=== PATIENT | female | born 1950 | race Caucasian/White ===

== ENCOUNTER 2018-05-15 18:18 | Inpatient (IN) | payer OTHER, MEDICAID ==
[2018-05-15 20:21] LABS: ADD MAN DIFF? NO
[2018-05-15 20:25] LABS: BASOPHIL # 0.1 10^3/ul (0.0-0.1); BASOPHILS % 0.5 % (0.0-2.0); EOSINOPHILS # 0.2 10^3/ul (0.0-0.5); EOSINOPHILS % 1.9 % (0.0-7.0); HEMOGLOBIN 10.8 g/dl (12.0-16.0); LYMPHOCYTES # 2.6 10^3/ul (0.8-2.9); LYMPHOCYTES % 27.8 % (15.0-51.0); MEAN CORPUSCULAR HGB CONC 31.8 g/dl (32.0-37.0); MEAN CORPUSCULAR VOLUME 91.2 fl (82.0-101.0); MEAN PLATELET VOLUME 11.5 fl (7.4-10.4); MONOCYTE # 0.5 10^3/ul (0.3-0.9); MONOCYTES % 4.9 % (0.0-11.0); NEUTROPHIL # 6.1 10^3/ul (1.6-7.5); NEUTROPHILS % 64.5 % (39.0-77.0); PLATELET COUNT 199 10^3/UL (140-415); RED BLOOD COUNT 3.73 10^6/ul (4.20-5.40); RED CELL DISTRIBUTION WIDTH 13.5 % (11.5-14.5)
[2018-05-15 20:25] LABS: WHITE BLOOD COUNT 9.4 10^3/ul (4.8-10.8)
[2018-05-15] MEDS: ENALAPRILAT 1.25 MG INJ IV (20:30)
[2018-05-15 20:43] LABS: ALANINE AMINOTRANSFERASE 17 IU/L (13-69); ALBUMIN 3.9 g/dl (3.3-4.9); ALBUMIN/GLOBULIN RATIO 1.08; ALKALINE PHOSPHATASE 83 IU/L (42-121); ANION GAP 9 (5-13); ASPARTATE AMINO TRANSFERASE 19 IU/L (15-46); BILIRUBIN,INDIRECT 0.3 mg/dl (0-1.1); BILIRUBIN,TOTAL 0.3 mg/dl (0.2-1.3); BLOOD UREA NITROGEN 16 mg/dl (7-20); CALCIUM 8.7 mg/dl (8.4-10.2); CARBON DIOXIDE 29 mmol/L (21-31); CHLORIDE 102 mmol/L (97-110); CREATININE 0.83 mg/dl (0.44-1.00); Estimated GFR > 60 mL/min (>60); GLUCOSE 193 mg/dl (70-220); LIPASE 55 U/L (23-300); POTASSIUM 4.7 mmol/L (3.5-5.1); SODIUM 140 mmol/L (135-144); TOTAL PROTEIN 7.5 g/dl (6.1-8.1)
[2018-05-15 20:44] LABS: PROTIME 12.2 Sec (11.9-14.9)
[2018-05-15] MEDS: niCARdipine-NS 0.1MG/ML DRIP 200 ML IV (20:44)
[2018-05-15 20:45] LABS: PARTIAL THROMBOPLASTIN TIME 29.5 Sec (23.0-35.0)
[2018-05-15 20:55] LABS: TROPONIN-I < 0.012 ng/ml (0.000-0.120)
[2018-05-15] MEDS: LORAZEPAM 2 MG INJ IV (21:03)
[2018-05-15] MEDS: SOD CHLORIDE 0.9% 1,000 ML IV (21:04)
[2018-05-15 21:57] LABS: AADO2 Arterial 111.8 mmHg (7.0-24.0); Arterial Base Excess 2.9 mmol/L (-3.0-3); Arterial Blood Gas Oxygen Sat 98.7 mmHG (95.0-98.0); Arterial COHb 0.2 % (0.0-3.0); Arterial Fraction of Oxyhgb 98.2 % (93.0-99.0); Arterial HCO3 28.8 mmol/L (22.0-26.0); Arterial MetHb 0.3 % (0.0-1.5); Arterial pCO2 49.4 mmhg (35-45); MODE MASK - SIMPLE; Site Right Brachial
[2018-05-15] MEDS: IOHEXOL 100 ML (22:19)
[2018-05-15] MEDS: SOD CHLORIDE 0.9% 100 ML (22:19)
[2018-05-15] MEDS: ASPIRIN 300 MG SUPP PR (23:26)
[2018-05-15] MEDS: LEVETIRACETAM 1000 MG (PMX) 100 ML IVPB (23:26)
[2018-05-16 07:50] LABS: ADD UMIC YES; UR ASCORBIC ACID NEGATIVE (NEGATIVE); UR BILIRUBIN (Dip) NEGATIVE (NEGATIVE); UR BLOOD (Dip) 1+ mg/dL (NEGATIVE); UR CLARITY CLEAR (CLEAR); UR COLOR YELLOW (YELLOW); UR GLUCOSE (Dip) 3+ mg/dL (NEGATIVE); UR KETONES (Dip) 1+ mg/dL (NEGATIVE); UR LEUKOCYTE ESTERASE (Dip) NEGATIVE Leu/ul (NEGATIVE); UR NITRITE (Dip) NEGATIVE (NEGATIVE); UR RBC 32 /HPF (0-5); UR TOTAL PROTEIN (Dip) 3+ mg/dl (NEGATIVE); UR UROBILINOGEN (Dip) NEGATIVE (NEGATIVE); UR WBC 9 /HPF (0-5)
[2018-05-16 08:03] LABS: AMPHETAMINE/METHAMPHETAMINE Negative (NEGATIVE); BARBITURATES Negative (NEGATIVE); BENZODIAZEPINES Negative (NEGATIVE); CANNABINOIDS Negative (NEGATIVE); COCAINE Negative (NEGATIVE); OPIATES Negative (NEGATIVE)
[2018-05-16] MEDS: DEXTROSE 5%-0.45% NACL 1,000 ML IV ×2 (08:39→23:30)
[2018-05-16] MEDS: PHENYTOIN 1,000 MG in SOD CHLORIDE 0.9% 100 ML IV (08:43)
[2018-05-16] MEDS: ACETAMINOPHEN 650 MG SUPP PR (08:46)
[2018-05-16] MEDS: CEFTRIAXONE 1 GM/50 ML (PMX) 50 ML IVPB (08:50)
[2018-05-16] MEDS ORDERED: ALBUTEROL 0.083% (NEB) 2.5 MG/3 ML AMP NEB (09:00)
[2018-05-16] MEDS ORDERED: LORAZEPAM 4 MG/ML VIAL IV (09:00)
[2018-05-16] MEDS ORDERED: ACETAMINOPHEN 650 MG SUPP PR (09:00)
[2018-05-16] MEDS ORDERED: ONDANSETRON 4 MG INJ IV (09:00)
[2018-05-16 09:09] LABS: HEMOGLOBIN A1C 7.2 % (0-5.9)
[2018-05-16] MEDS ORDERED: GLUCOSE GEL 15 GRAM TUBE PO ×2 (09:30)
[2018-05-16] MEDS ORDERED: DEXTROSE 50% 50 ML SYRINGE IV ×2 (09:30)
[2018-05-16] MEDS ORDERED: GLUCOSE GEL 15 GRAM TUBE BUCCAL (09:30)
[2018-05-16] MEDS ORDERED: GLUCAGON 1 MG INJ IM (09:30)
[2018-05-16 10:23] LABS: AMPHETAMINE/METHAMPHETAMINE Negative (NEGATIVE); BARBITURATES Negative (NEGATIVE); BENZODIAZEPINES Negative (NEGATIVE); CANNABINOIDS Negative (NEGATIVE); COCAINE Negative (NEGATIVE); OPIATES Negative (NEGATIVE)
[2018-05-16] MEDS ORDERED: LORAZEPAM 2 MG INJ IV (10:35)
[2018-05-16] MEDS: ASPIRIN (EC) 81 MG TAB PO (10:35)
[2018-05-16] MEDS: ACETAMINOPHEN 1000MG/100ML IV 100 ML IVPB (10:59)
[2018-05-16] MEDS: INSULIN ASPART [NOVOLOG] 3 ML PEN SC ×4 (11:03→21:36)
[2018-05-16] MEDS: PHENYTOIN 100 MG INJ IV (14:48)
[2018-05-16] MEDS: ATORVASTATIN 80 MG TAB PO (21:00)
[2018-05-16] MEDS: CEFEPIME 1GM/50 ML (PMX) 50 ML IVPB (21:32)
[2018-05-16] MEDS: ACYCLOVIR 500 MG in SOD CHLORIDE 0.9% 100 ML IVPB (22:55)
[2018-05-16] MEDS: VANCOMYCIN 750 MG (PMX) 250 ML IVPB (23:38)
[2018-05-17] MEDS: INSULIN ASPART [NOVOLOG] 3 ML PEN SC ×6 (01:40→21:43)
[2018-05-17 05:10] LABS: ADD MAN DIFF? NO
[2018-05-17 05:18] LABS: WHITE BLOOD COUNT 13.7 10^3/ul (4.8-10.8)
[2018-05-17 05:18] LABS: BASOPHILS % 0.3 % (0.0-2.0); EOSINOPHILS % 0.1 % (0.0-7.0); HEMATOCRIT 31.2 % (37.0-47.0); HEMOGLOBIN 10.1 g/dl (12.0-16.0); LYMPHOCYTES # 2.5 10^3/ul (0.8-2.9); MEAN CORPUSCULAR HEMOGLOBIN 28.8 pg (29.0-33.0); MEAN CORPUSCULAR HGB CONC 32.4 g/dl (32.0-37.0); MEAN CORPUSCULAR VOLUME 88.9 fl (82.0-101.0); MEAN PLATELET VOLUME 11.3 fl (7.4-10.4); MONOCYTE # 1.1 10^3/ul (0.3-0.9); MONOCYTES % 8.2 % (0.0-11.0); PLATELET COUNT 149 10^3/UL (140-415); RED BLOOD COUNT 3.51 10^6/ul (4.20-5.40)
[2018-05-17 05:47] LABS: ANION GAP 11 (5-13); BLOOD UREA NITROGEN 19 mg/dl (7-20); CALCIUM 7.8 mg/dl (8.4-10.2); CARBON DIOXIDE 27 mmol/L (21-31); CHLORIDE 103 mmol/L (97-110); CREATININE 0.85 mg/dl (0.44-1.00); GLUCOSE 205 mg/dl (70-220); MAGNESIUM 1.3 mg/dl (1.7-2.5); PHOSPHORUS 3.6 mg/dl (2.5-4.9); POTASSIUM 3.4 mmol/L (3.5-5.1); SODIUM 141 mmol/L (135-144)
[2018-05-17] MEDS: PANTOPRAZOLE 40 MG INJ IV (05:58)
[2018-05-17] MEDS: ACYCLOVIR 500 MG in SOD CHLORIDE 0.9% 100 ML IVPB ×3 (05:59→21:48)
[2018-05-17] MEDS: MAGNESIUM SULFATE 4 GM/100 ML 100 ML IVPB (08:30)
[2018-05-17] MEDS: CEFEPIME 1GM/50 ML (PMX) 50 ML IVPB ×2 (08:55→20:27)
[2018-05-17] MEDS ORDERED: POTASSIUM CHLORIDE 50 ML IVPB (09:00)
[2018-05-17] MEDS: ASPIRIN (EC) 81 MG TAB PO (09:00)
[2018-05-17] MEDS ORDERED: MAGNESIUM SULFATE 4 GM/100 ML 100 ML IVPB (09:00)
[2018-05-17] MEDS: 1/2 NS + KCL 20 MEQ 1,000 ML IV ×2 (10:00→21:49)
[2018-05-17] MEDS: VANCOMYCIN 750 MG (PMX) 250 ML IVPB (11:21)
[2018-05-17] MEDS: LIDOCAINE 1% (MPF) 5 ML VIAL (14:17)
[2018-05-17 16:53] LABS: MAGNESIUM 2.5 mg/dl (1.7-2.5)
[2018-05-17] MEDS: ATORVASTATIN 80 MG TAB PO (20:27)
[2018-05-18] MEDS: LORAZEPAM 4 MG/ML VIAL IV ×4 (00:27→23:25)
[2018-05-18] MEDS: VANCOMYCIN 750 MG (PMX) 250 ML IVPB ×3 (00:28→23:25)
[2018-05-18] MEDS: INSULIN ASPART [NOVOLOG] 3 ML PEN SC ×6 (04:18→20:12)
[2018-05-18 05:22] LABS: ADD MAN DIFF? NO
[2018-05-18 05:25] LABS: WHITE BLOOD COUNT 7.2 10^3/ul (4.8-10.8)
[2018-05-18 05:25] LABS: BASOPHILS % 0.6 % (0.0-2.0); EOSINOPHILS # 0.1 10^3/ul (0.0-0.5); HEMATOCRIT 32.8 % (37.0-47.0); HEMOGLOBIN 10.4 g/dl (12.0-16.0); LYMPHOCYTES # 1.9 10^3/ul (0.8-2.9); LYMPHOCYTES % 26.2 % (15.0-51.0); MEAN CORPUSCULAR HEMOGLOBIN 28.8 pg (29.0-33.0); MEAN CORPUSCULAR HGB CONC 31.7 g/dl (32.0-37.0); MEAN CORPUSCULAR VOLUME 90.9 fl (82.0-101.0); MEAN PLATELET VOLUME 11.4 fl (7.4-10.4); MONOCYTE # 0.5 10^3/ul (0.3-0.9); MONOCYTES % 6.6 % (0.0-11.0); NEUTROPHIL # 4.7 10^3/ul (1.6-7.5); NEUTROPHILS % 65.2 % (39.0-77.0); PLATELET COUNT 139 10^3/UL (140-415); RED BLOOD COUNT 3.61 10^6/ul (4.20-5.40); RED CELL DISTRIBUTION WIDTH 13.8 % (11.5-14.5)
[2018-05-18] MEDS: ACYCLOVIR 500 MG in SOD CHLORIDE 0.9% 100 ML IVPB ×3 (05:25→22:55)
[2018-05-18] MEDS: PANTOPRAZOLE 40 MG INJ IV (05:25)
[2018-05-18 05:55] LABS: ALBUMIN 3.1 g/dl (3.3-4.9); ANION GAP 7 (5-13); BLOOD UREA NITROGEN 13 mg/dl (7-20); CARBON DIOXIDE 25 mmol/L (21-31); CHLORIDE 112 mmol/L (97-110); CREATININE 1.03 mg/dl (0.44-1.00); GLUCOSE 157 mg/dl (70-220); MAGNESIUM 2.3 mg/dl (1.7-2.5); PHOSPHORUS 4.1 mg/dl (2.5-4.9); POTASSIUM 3.8 mmol/L (3.5-5.1); SODIUM 144 mmol/L (135-144)
[2018-05-18 06:16] LABS: POSITIVE DIFF @See below
[2018-05-18] MEDS: ASPIRIN (EC) 81 MG TAB PO (08:07)
[2018-05-18] MEDS: CEFEPIME 1GM/50 ML (PMX) 50 ML IVPB ×2 (08:08→20:02)
[2018-05-18] MEDS: 1/2 NS + KCL 20 MEQ 1,000 ML IV (10:33)
[2018-05-18] MEDS ORDERED: LORAZEPAM 4 MG/ML VIAL IV (11:00)
[2018-05-18] MEDS: LABETALOL 100 MG TAB PO (12:33)
[2018-05-18] MEDS: BENAZEPRIL 40 MG TAB PO (12:34)
[2018-05-18] MEDS: ATORVASTATIN 80 MG TAB PO (19:54)
[2018-05-19] MEDS: 1/2 NS + KCL 20 MEQ 1,000 ML IV ×2 (01:00→14:02)
[2018-05-19] MEDS: INSULIN ASPART [NOVOLOG] 3 ML PEN SC ×6 (01:00→22:01)
[2018-05-19] MEDS: PANTOPRAZOLE 40 MG INJ IV (05:07)
[2018-05-19] MEDS: ACYCLOVIR 500 MG in SOD CHLORIDE 0.9% 100 ML IVPB ×3 (05:19→22:07)
[2018-05-19 05:53] LABS: ADD MAN DIFF? NO
[2018-05-19 05:58] LABS: BASOPHILS % 0.5 % (0.0-2.0); EOSINOPHILS # 0.1 10^3/ul (0.0-0.5); EOSINOPHILS % 1.5 % (0.0-7.0); HEMATOCRIT 29.3 % (37.0-47.0); HEMOGLOBIN 9.3 g/dl (12.0-16.0); LYMPHOCYTES # 1.6 10^3/ul (0.8-2.9); MEAN CORPUSCULAR HEMOGLOBIN 28.5 pg (29.0-33.0); MEAN CORPUSCULAR HGB CONC 31.7 g/dl (32.0-37.0); MEAN CORPUSCULAR VOLUME 89.9 fl (82.0-101.0); MEAN PLATELET VOLUME 11.5 fl (7.4-10.4); MONOCYTE # 0.4 10^3/ul (0.3-0.9); NEUTROPHIL # 4.5 10^3/ul (1.6-7.5); NEUTROPHILS % 67.8 % (39.0-77.0); PLATELET COUNT 127 10^3/UL (140-415); RED BLOOD COUNT 3.26 10^6/ul (4.20-5.40); RED CELL DISTRIBUTION WIDTH 13.9 % (11.5-14.5)
[2018-05-19 05:58] LABS: WHITE BLOOD COUNT 6.6 10^3/ul (4.8-10.8)
[2018-05-19 06:28] LABS: ALBUMIN 2.8 g/dl (3.3-4.9); ANION GAP 5 (5-13); BLOOD UREA NITROGEN 12 mg/dl (7-20); CARBON DIOXIDE 25 mmol/L (21-31); CHLORIDE 112 mmol/L (97-110); CREATININE 0.91 mg/dl (0.44-1.00); GLUCOSE 147 mg/dl (70-220); MAGNESIUM 2.1 mg/dl (1.7-2.5); PHOSPHORUS 3.6 mg/dl (2.5-4.9); POTASSIUM 3.5 mmol/L (3.5-5.1); SODIUM 142 mmol/L (135-144)
[2018-05-19] MEDS: ASPIRIN (EC) 81 MG TAB PO (08:38)
[2018-05-19] MEDS: CEFEPIME 1GM/50 ML (PMX) 50 ML IVPB ×2 (08:38→21:04)
[2018-05-19] MEDS: LABETALOL 100 MG TAB PO (08:38)
[2018-05-19] MEDS: BENAZEPRIL 40 MG TAB PO (08:38)
[2018-05-19] MEDS: LORAZEPAM 4 MG/ML VIAL IV (08:51)
[2018-05-19] MEDS ORDERED: LIDOCAINE 2% (SDV) 5 ML INJ (08:54)
[2018-05-19 11:11] LABS: CSF RBC 0 /uL (0-0); CSF WBC 5 /cmm (0-10)
[2018-05-19 11:16] LABS: CSF RBC 0 /uL (0-0); CSF WBC 4 /cmm (0-10)
[2018-05-19 11:20] LABS: CSF COLOR COLORLESS
[2018-05-19 11:20] LABS: CSF CLARITY CLEAR; CSF VOLUME 4.5 ml; CSF#TUBE COUNT TUBE#4; CSF#TUBES REC'D 4
[2018-05-19 11:21] LABS: CSF CLARITY CLEAR; CSF COLOR COLORLESS; CSF VOLUME 4.5 ml; CSF#TUBE COUNT TUBE#1; CSF#TUBES REC'D 4; TOTAL PROTEIN,CSF 82 mg/dl (12-60)
[2018-05-19 11:21] LABS: GLUCOSE,CSF 92 mg/dl (50-80)
[2018-05-19] MEDS: hydrALAzine 20 MG INJ IV (11:47)
[2018-05-19] MEDS: VANCOMYCIN 750 MG (PMX) 250 ML IVPB ×2 (11:47→22:46)
[2018-05-19] MEDS: ATORVASTATIN 80 MG TAB PO (21:03)
[2018-05-19 23:04] LABS: VANCOMYCIN,TROUGH 16.6 ug/ml (10.0-20.0)
[2018-05-20] MEDS: INSULIN ASPART [NOVOLOG] 3 ML PEN SC ×6 (01:00→21:29)
[2018-05-20] MEDS: hydrALAzine 20 MG INJ IV (03:31)
[2018-05-20] MEDS: 1/2 NS + KCL 20 MEQ 1,000 ML IV ×2 (03:40→17:19)
[2018-05-20 04:54] LABS: ADD MAN DIFF? NO
[2018-05-20 04:58] LABS: BASOPHILS % 0.3 % (0.0-2.0); EOSINOPHILS # 0.2 10^3/ul (0.0-0.5); EOSINOPHILS % 1.9 % (0.0-7.0); HEMATOCRIT 33.2 % (37.0-47.0); HEMOGLOBIN 10.7 g/dl (12.0-16.0); LYMPHOCYTES # 1.8 10^3/ul (0.8-2.9); LYMPHOCYTES % 22.4 % (15.0-51.0); MEAN CORPUSCULAR HEMOGLOBIN 28.8 pg (29.0-33.0); MEAN CORPUSCULAR HGB CONC 32.2 g/dl (32.0-37.0); MEAN CORPUSCULAR VOLUME 89.2 fl (82.0-101.0); MEAN PLATELET VOLUME 11.2 fl (7.4-10.4); MONOCYTE # 0.4 10^3/ul (0.3-0.9); MONOCYTES % 5.2 % (0.0-11.0); NEUTROPHIL # 5.5 10^3/ul (1.6-7.5); NEUTROPHILS % 69.7 % (39.0-77.0); PLATELET COUNT 146 10^3/UL (140-415); RED BLOOD COUNT 3.72 10^6/ul (4.20-5.40); RED CELL DISTRIBUTION WIDTH 13.5 % (11.5-14.5)
[2018-05-20 04:58] LABS: WHITE BLOOD COUNT 7.8 10^3/ul (4.8-10.8)
[2018-05-20 05:17] LABS: ANION GAP 6 (5-13); BLOOD UREA NITROGEN 11 mg/dl (7-20); CALCIUM 8.7 mg/dl (8.4-10.2); CARBON DIOXIDE 25 mmol/L (21-31); CHLORIDE 110 mmol/L (97-110); CREATININE 0.75 mg/dl (0.44-1.00); Estimated GFR > 60 mL/min (>60); GLUCOSE 199 mg/dl (70-220); MAGNESIUM 1.8 mg/dl (1.7-2.5); PHOSPHORUS 3.3 mg/dl (2.5-4.9); POTASSIUM 3.5 mmol/L (3.5-5.1); SODIUM 141 mmol/L (135-144)
[2018-05-20] MEDS: ACYCLOVIR 500 MG in SOD CHLORIDE 0.9% 100 ML IVPB ×2 (05:40→14:20)
[2018-05-20] MEDS: PANTOPRAZOLE 40 MG INJ IV (05:40)
[2018-05-20] MEDS: CEFEPIME 1GM/50 ML (PMX) 50 ML IVPB ×2 (08:32→21:18)
[2018-05-20] MEDS: LABETALOL 100 MG TAB PO (08:33)
[2018-05-20] MEDS: ASPIRIN (EC) 81 MG TAB PO (08:33)
[2018-05-20] MEDS: BENAZEPRIL 40 MG TAB PO (08:34)
[2018-05-20] MEDS: VANCOMYCIN 750 MG (PMX) 250 ML IVPB (11:55)
[2018-05-20] MEDS: ATORVASTATIN 80 MG TAB PO (21:18)
[2018-05-21] MEDS: ACYCLOVIR 500 MG in SOD CHLORIDE 0.9% 100 ML IVPB ×2 (00:41→05:31)
[2018-05-21] MEDS: VANCOMYCIN 750 MG (PMX) 250 ML IVPB ×2 (01:50→10:21)
[2018-05-21] MEDS: INSULIN ASPART [NOVOLOG] 3 ML PEN SC ×3 (02:00→08:04)
[2018-05-21 05:06] LABS: ADD MAN DIFF? NO
[2018-05-21 05:14] LABS: WHITE BLOOD COUNT 7.7 10^3/ul (4.8-10.8)
[2018-05-21 05:14] LABS: BASOPHILS % 0.4 % (0.0-2.0); EOSINOPHILS # 0.2 10^3/ul (0.0-0.5); EOSINOPHILS % 2.3 % (0.0-7.0); HEMATOCRIT 32.1 % (37.0-47.0); HEMOGLOBIN 10.3 g/dl (12.0-16.0); LYMPHOCYTES # 1.7 10^3/ul (0.8-2.9); LYMPHOCYTES % 21.4 % (15.0-51.0); MEAN CORPUSCULAR HEMOGLOBIN 28.8 pg (29.0-33.0); MEAN CORPUSCULAR HGB CONC 32.1 g/dl (32.0-37.0); MEAN CORPUSCULAR VOLUME 89.7 fl (82.0-101.0); MEAN PLATELET VOLUME 11.5 fl (7.4-10.4); MONOCYTE # 0.5 10^3/ul (0.3-0.9); MONOCYTES % 6.8 % (0.0-11.0); NEUTROPHIL # 5.3 10^3/ul (1.6-7.5); NEUTROPHILS % 68.7 % (39.0-77.0); PLATELET COUNT 160 10^3/UL (140-415); RED BLOOD COUNT 3.58 10^6/ul (4.20-5.40); RED CELL DISTRIBUTION WIDTH 13.7 % (11.5-14.5)
[2018-05-21] MEDS: PANTOPRAZOLE 40 MG INJ IV (05:30)
[2018-05-21 05:47] LABS: ANION GAP 10 (5-13); BLOOD UREA NITROGEN 14 mg/dl (7-20); CALCIUM 8.7 mg/dl (8.4-10.2); CARBON DIOXIDE 27 mmol/L (21-31); CHLORIDE 107 mmol/L (97-110); CREATININE 0.83 mg/dl (0.44-1.00); Estimated GFR > 60 mL/min (>60); GLUCOSE 172 mg/dl (70-220); MAGNESIUM 1.7 mg/dl (1.7-2.5); POTASSIUM 3.8 mmol/L (3.5-5.1); SODIUM 144 mmol/L (135-144)
[2018-05-21] MEDS: 1/2 NS + KCL 20 MEQ 1,000 ML IV (06:20)
[2018-05-21] MEDS: CEFEPIME 1GM/50 ML (PMX) 50 ML IVPB (08:00)
[2018-05-21] MEDS: ASPIRIN (EC) 81 MG TAB PO (08:00)
[2018-05-21] MEDS: LABETALOL 100 MG TAB PO (08:01)
[2018-05-21] MEDS: BENAZEPRIL 40 MG TAB PO (08:01)
[2018-05-21] MEDS: NIFEdipine (XL) 30 MG TAB PO (10:24)
[2018-05-21] MEDS ORDERED: INSULIN ASPART [NOVOLOG] 3 ML PEN SC (11:30)
[2018-05-21] MEDS: Insulin NOVOLOG SS MILD Algorithm (SS with meals and bedtime) SC ×3 (12:14→20:12)
[2018-05-21] MEDS: ATORVASTATIN 80 MG TAB PO (20:02)
[2018-05-21] MEDS: hydrALAzine 20 MG INJ IV (20:05)
[2018-05-22 04:57] LABS: ADD MAN DIFF? NO
[2018-05-22 05:10] LABS: BASOPHILS % 0.4 % (0.0-2.0); EOSINOPHILS # 0.2 10^3/ul (0.0-0.5); EOSINOPHILS % 2.6 % (0.0-7.0); HEMATOCRIT 33.3 % (37.0-47.0); HEMOGLOBIN 10.8 g/dl (12.0-16.0); LYMPHOCYTES # 1.6 10^3/ul (0.8-2.9); LYMPHOCYTES % 20.8 % (15.0-51.0); MEAN CORPUSCULAR HGB CONC 32.4 g/dl (32.0-37.0); MEAN CORPUSCULAR VOLUME 89.5 fl (82.0-101.0); MEAN PLATELET VOLUME 11.5 fl (7.4-10.4); MONOCYTE # 0.5 10^3/ul (0.3-0.9); MONOCYTES % 6.3 % (0.0-11.0); NEUTROPHIL # 5.2 10^3/ul (1.6-7.5); NEUTROPHILS % 69.4 % (39.0-77.0); PLATELET COUNT 166 10^3/UL (140-415); RED BLOOD COUNT 3.72 10^6/ul (4.20-5.40); RED CELL DISTRIBUTION WIDTH 13.6 % (11.5-14.5)
[2018-05-22 05:10] LABS: WHITE BLOOD COUNT 7.5 10^3/ul (4.8-10.8)
[2018-05-22 05:45] LABS: ANION GAP 10 (5-13); BLOOD UREA NITROGEN 11 mg/dl (7-20); CALCIUM 9.3 mg/dl (8.4-10.2); CARBON DIOXIDE 29 mmol/L (21-31); CHLORIDE 104 mmol/L (97-110); CREATININE 0.75 mg/dl (0.44-1.00); Estimated GFR > 60 mL/min (>60); GLUCOSE 241 mg/dl (70-220); MAGNESIUM 1.7 mg/dl (1.7-2.5); PHOSPHORUS 3.6 mg/dl (2.5-4.9); POTASSIUM 3.8 mmol/L (3.5-5.1); SODIUM 143 mmol/L (135-144)
[2018-05-22] MEDS: PANTOPRAZOLE (EC) 40 MG TAB PO (06:00)
[2018-05-22] MEDS: Insulin NOVOLOG SS MILD Algorithm (SS with meals and bedtime) SC ×2 (07:48→12:17)
[2018-05-22] MEDS: BENAZEPRIL 40 MG TAB PO (08:06)
[2018-05-22] MEDS: LABETALOL 100 MG TAB PO (08:06)
[2018-05-22] MEDS: ASPIRIN (EC) 81 MG TAB PO (08:06)
[2018-05-22] MEDS: NIFEdipine (XL) 30 MG TAB PO (08:06)
[2018-05-22 16:31] LABS: WEST NILE VIRUS ANTIBODY (IGG) <1.30 index; WEST NILE VIRUS ANTIBODY (IGM) <0.90 index
== END 2018-05-22 16:14 | disposition home health service (06) | DRG 689 ==
LOC: E/R 18:18 → 6WM 05-17 12:16 → ICU 05-16 08:28
PROVIDERS: Internal Medicine
PROC: 009U3ZX Drainage of Spinal Canal, Percutaneous Approach, Diagnostic (ICD-10-PCS; principal; 2018-05-19)
PROC: B01BYZZ Fluoroscopy of Spinal Cord using Other Contrast (ICD-10-PCS; 2018-05-19)
DX: N39.0 Urinary tract infection, site not specified (principal); G92 Toxic encephalopathy; I16.1 Hypertensive emergency; B96.20 Unspecified Escherichia coli [E. coli] as the cause of diseases classified elsewhere; E11.9 Type 2 diabetes mellitus without complications; E78.5 Hyperlipidemia, unspecified; F03.90 Unspecified dementia, unspecified severity, without behavioral disturbance, psychotic disturbance, mood disturbance, and anxiety; I10 Essential (primary) hypertension; Z53.09 Procedure and treatment not carried out because of other contraindication; I69.398 Other sequelae of cerebral infarction; I69.320 Aphasia following cerebral infarction; Z79.82 Long term (current) use of aspirin; Z79.4 Long term (current) use of insulin
CPT/HCPCS: 36415; 36600; 70450; 70496; 70498; 70546; 70553; 71045; 80048; 80053; 80069; 80202; 80307; 81001; 82803; 82945; 82962; 83036; 83605; 83690; 83735; 84100; 84157; 84484; 85025; 85610; 85730; 86788; 86789; 87040; 87070; 87081; 87086; 89051; 92526; 92610; 93005; 93306; 95819; 96374; 96375; 97110; 97116; 97162; 97167; 97530; 97535; 99291-25